=== PATIENT | female | born 1955 | race Caucasian/White ===

== ENCOUNTER → 2017-03-10 | Outpatient (CLI) | payer BC ==
--- NOTE | 2017-03-10 11:33 | RAD ---
Examination: 3 views of the right wrist History: History of follow-up fracture. Comparison: None available Findings: There is a volar and lateral displaced fracture of the distal radius with the fracture line involving in the distal metadiaphysis and extending intra-articularly. There is mild displaced fracture of the ulnar styloid. The alignment of the carpal bones grossly appears unremarkable. Mild degenerative changes identified in the first carpal metacarpal joint. Impression 1. Displaced fractures of the distal radius and ulnar styloid as described. Comparison the prior exam is recommended.
== END | disposition home or self-care (01) ==
LOC: DXRAD 09:23
PROVIDERS: ATTEND Orthopaedic Surgery
DX: S52.501D Unspecified fracture of the lower end of right radius, subsequent encounter for closed fracture with routine healing (principal); X58.XXXD Exposure to other specified factors, subsequent encounter
CPT/HCPCS: 73110